=== PATIENT | female | born 1995 | race Caucasian/White ===

== ENCOUNTER → 2018-05-02 | Outpatient (CLI) | payer OTHER ==
[~2018-05-02] MED LIST: HYDACE5325 PO; IBUP800 PO; MEDR10 PO; NITR100CA PO; OXYACE5T PO; Vitafol-Ob+Dha1 EACH PO
== END | disposition home or self-care (01) ==
LOC: LAB SHORT 16:04 → LAB 16:04
PROVIDERS: Obstetrics & Gynecology
DX: Z12.4 Encounter for screening for malignant neoplasm of cervix (principal)
CPT/HCPCS: G0123

== ENCOUNTER 2018-08-13 09:15 | Day surgery (SDC) | payer OTHER ==
[~2018-08-13] VITALS: Ht 157.5 cm; Wt 77.1 kg
--- NOTE | 2018-08-13 10:05 | NUR ---
Ambulatory in Day Surgery Surgical site prepped with 2% Chlorhexidine cloth wipe. History, Chart, Medications and Allergies reviewed before start of procedure.Lungs clear T/O to Auscultation. Patient confirms NPO status and agrees with scheduled surgery. Patient reports completing Chlorhexadine shower X2 prior to admission to hospital. WARM BLANKET PROVIDED. BELONGIGNS UNDER BED. REFUSAL TO REMOVE JEWELRY OUT OF EARS SIGNED.
--- NOTE | 2018-08-13 10:54 | NUR ---
PT BECAME NAUSEATED FROM MIGRAINE. CALL OUT TO DR ABREU. PT RECEIVED ZOFRAN FOR NAUSEA WITH GOOD RESULTS. UNABLE TO GET AN ORDER FOR PAIN MEDS PRIOR TO ANESTHESIA CONSULT. PT GIVEN SOME VERSED BY AESTHESIA WITH GOOD RESULTS. VOMITED 50CC YELLOW CLEAR DRAINAGE. BOYFRIEND AT SIDE.
--- NOTE | 2018-08-13 15:45 | NUR ---
PT'S SHIFT ASSESSMENT WAS COMPLETED AT 1400
--- NOTE | 2018-08-13 18:17 | NUR ---
SHIFT SUMMARY PT ARRIVED ON FLOOR VERY DROWSEY, UPON WAKING UP PT BECAME NAUSEATED AND WAS ACTIVILY VOMITING. NEW IV MEDICATION ORDERED FOR PAIN AND NAUSEA, PT NOT ABLE TO TOLERATE PO FLUIDS OR FOODS AT THIS TIME, NO ORAL PAIN MEDICATION GIVEN AT THIS TIME DUE TO EMPTY STOMACH/NAUSEA. NO ABD BLOATING, INCISIONS ON ABD WITH MINIMAL DRAINAGE.
--- NOTE | 2018-08-13 19:00 | NUR ---
RECEIVED HAND OFF FROM DAY NURSE USING SBAR. LYING IN RIGHT RECOMBANT WITH EYES OPEN. AAO X3, CALIX, FOLLOWS ALL COMMANDS. REORIENTED TO ROOM, CALL SYSTEM, AND POC, VOICES UNDERSTANDING. RESPIRATIONS EVEN AND UNLABORED ON ROOM AIR. LUNG SOUNDS CLEAR BILATERALLY. ABDOMEN SOFT AND NONDISTENDED. BOWEL SOUNDS PRESENT IN ALL QUADS. LAP SITES X3 COVERED WITH STERI STRIPS. HEATON CATH DRAINING CLEAR YELLOW URINE TO GRAVITY. RIGHT FA PIV IS PATENT, FLUSHING WITH EASE WHILE INFUSING IVF PER MD ORDERS. DENIES FURTHER NEEDS OR WANT AT THIS TIME. SAFETY MEASURES IN PLACE. WILL CONTINUE TO MONITOR.
[2018-08-14 05:53] LABS: BASOPHILS ABSOLUTE AUTO 0.01 K/mm3 (0.00-0.23); BASOPHILS PERCENT AUTO 0 % (0-2); EOSINOPHILS ABSOLUTE AUTO 0.01 K/mm3 (0.00-0.68); EOSINOPHILS PERCENT AUTO 0 % (0-6); Hematocrit 34.9 % (33.0-51.0); Hemoglobin 11.3 g/dL (11.5-16.0); IMMATURE GRAN ABSOLUTE AUTO 0.01 K/mm3 (0.00-0.10); IMMATURE GRAN PERCENT AUTO 0 % (0-1); LYMPHOCYTES ABSOLUTE AUTO 1.21 K/mm3 (0.84-5.20); LYMPHOCYTES PERCENT AUTO 18 % (21-46); MONOCYTES ABSOLUTE AUTO 0.48 K/mm3 (0.16-1.47); MONOCYTES PERCENT AUTO 7 % (4-13); Mean Corpuscular HGB 28.5 pg (26.0-34.0); Mean Corpuscular HGB Conc 32.4 g/dL (31.5-36.5); Mean Corpuscular Volume 88 fL (80-100); Mean Platelet Volume 10.7 fL (9.1-12.4); NEUTROPHILS ABSOLUTE AUTO 4.89 K/mm3 (1.96-9.15); NEUTROPHILS PERCENT AUTO 74 % (41-73); Platelet Count 206 K/mm3 (150-400); RDW Standard Deviation 38.8 fL (35.1-46.3); Red Blood Cell Count 3.97 M/mm3 (3.80-5.20); White Blood Cell Count 6.61 K/mm3 (4.00-11.30)
[2018-08-14] MEDS ORDERED: Percocet 5-3251 EACH PO (09:39)
[2018-08-14] MEDS ORDERED: IBUP800 PO (09:40)
--- NOTE | 2018-08-14 12:13 | NUR ---
discharged PT DISCHARGED. DC'D IV, CATHETER INTACT. REVIEWED DC INSTRUCTIONS, PT VERBALIZED UNDERSTANDING. LEFT UNIT BY AMBULATION W/POSSESSIONS IN HAND, ACCOMPANIED BY S.O.
== END 2018-08-14 12:04 | disposition home or self-care (01) ==
LOC: ORSCMMR 09:15 → PRE IP 10:30 → EDSTATUS 10:30 → SURS 13:58 → ORSCMMR 08-14 12:04 → SURS 08-14 12:04
PROVIDERS: Obstetrics & Gynecology
PROC: 0UT9FZZ Resection of Uterus, Via Natural or Artificial Opening With Percutaneous Endoscopic Assistance (ICD-10-PCS; principal; 2018-08-13 10:30)
PROC: 0UT7FZZ Resection of Bilateral Fallopian Tubes, Via Natural or Artificial Opening With Percutaneous Endoscopic Assistance (ICD-10-PCS; principal; 2018-08-13 10:30)
DX: N94.89 Other specified conditions associated with female genital organs and menstrual cycle (principal); Z23 Encounter for immunization
CPT/HCPCS: 36415; 85025; 88307; 90686; C1729; J0690; J1200; J1885; J2250; J2405; J2765; J3010; J7030; J7120

== ENCOUNTER → 2020-01-19 | Outpatient (CLI) | payer OTHER ==
[~2020-01-19] MED LIST changes: +Percocet 5-3251 EACH PO
== END | disposition home or self-care (01) ==
LOC: LAB SHORT 13:45 → LAB 13:45
DX: R05 Cough (principal)
CPT/HCPCS: 87081

== ENCOUNTER → 2020-07-27 | Outpatient (CLI) | payer OTHER | END | disposition home or self-care (01) | LOC: LAB SHORT 10:56 → LAB 10:56 | DX: N89.8 Other specified noninflammatory disorders of vagina (principal) | CPT/HCPCS: 87070; 87205 ==

== ENCOUNTER 2024-08-05 10:06 | Observation (INO) | payer OTHER ==
[~2024-08-05] VITALS: Ht 160 cm; Wt 99.8 kg
[2024-08-05 11:15] LABS: BASOPHILS ABSOLUTE AUTO 0.01 K/mm3 (0.00-0.23); BASOPHILS PERCENT AUTO 0 % (0-2); EOSINOPHILS ABSOLUTE AUTO 0.08 K/mm3 (0.00-0.68); EOSINOPHILS PERCENT AUTO 1 % (0-6); Hematocrit 42.2 % (33.0-51.0); Hemoglobin 14.1 g/dL (11.5-16.0); IMMATURE GRAN ABSOLUTE AUTO 0.02 K/mm3 (0.00-0.10); IMMATURE GRAN PERCENT AUTO 0 % (0-1); LYMPHOCYTES ABSOLUTE AUTO 1.58 K/mm3 (0.84-5.20); LYMPHOCYTES PERCENT AUTO 27 % (21-46); MONOCYTES ABSOLUTE AUTO 0.31 K/mm3 (0.16-1.47); MONOCYTES PERCENT AUTO 5 % (4-13); Mean Corpuscular HGB 28.8 pg (26.0-34.0); Mean Corpuscular HGB Conc 33.4 g/dL (31.5-36.5); Mean Corpuscular Volume 86 fL (80-100); Mean Platelet Volume 10.8 fL (9.1-12.4); NEUTROPHILS ABSOLUTE AUTO 3.88 K/mm3 (1.96-9.15); NEUTROPHILS PERCENT AUTO 66 % (41-73); Platelet Count 278 K/mm3 (150-400); RDW Coefficient Variation 11.9 % (11.7-14.2); RDW Standard Deviation 37.7 fL (35.1-46.3); Red Blood Cell Count 4.89 M/mm3 (3.80-5.20); White Blood Cell Count 5.88 K/mm3 (4.00-11.30)
[2024-08-05 11:39] LABS: Salicylate <1.7 mg/dL (2.8-20.0)
[2024-08-05 11:40] LABS: Ethanol (Alcohol), Blood, Med <3 mg/dL
[2024-08-05 11:45] LABS: Alanine Aminotransfer (ALT/SGP 27 U/L (12-78); Albumin, Blood 3.9 g/dL (3.4-5.0); Albumin/Globulin Ratio 1.2 (0.8-1.8); Alk Phos 77 U/L (50-136); Anion Gap 8 mmol/L (3-11); Aspartate Aminotrans (AST/SGOT 14 U/L (12-37); Bilirubin, Total 0.5 mg/dL (0.1-1.0); Blood Urea Nitrogen 9 mg/dL (8-24); Bun/Creatinine Ratio 13.8 (12.0-20.0); CO2, Blood 26 mmol/L (21-32); Calcium, Blood 8.9 mg/dL (8.5-10.1); Chloride, Blood 109 mmol/L (98-108); Creatinine, Blood 0.65 mg/dL (0.40-1.00); Globulin, Blood 3.2 g/dL (2.2-4.0); Glomerular Filtration Rate 121 (60-); Glucose, Blood 100 mg/dL (70-99); Sodium, Blood 139 mmol/L (136-145); Total Protein, Blood 7.1 g/dL (6.4-8.2)
[2024-08-05 11:46] LABS: Acetaminophen, Random <2.0 ug/mL (10.0-30.0)
[2024-08-05] MEDS ORDERED: TraZODone HCl 50 MG Tab PO ONE (14:30)
[2024-08-05 15:35] LABS: Influenza A, PCR NEGATIVE (NEGATIVE); Influenza B, PCR NEGATIVE (NEGATIVE); Resp Syncytial Virus, PCR NEGATIVE (NEGATIVE); SARS-Cov-2 (COVID-19) PCR, MMC NEGATIVE (NEGATIVE)
[2024-08-05] MEDS ORDERED: TraZODone HCl 50 MG Tab PO SCH (21:00)
[2024-08-06 10:45] VITALS: BP 136/95
[2024-08-06] MEDS ORDERED: Ibuprofen 600 MG Tab PO ONE (10:45)
== END 2024-08-06 11:04 | disposition home or self-care (01) ==
LOC: ER 10:06 → EOR 10:07
PROVIDERS: Physician Assistant; ADMIT Student in an Organized Health Care Education/Training Program
DX: F33.9 Major depressive disorder, recurrent, unspecified (principal); E66.3 Overweight; Z68.30 Body mass index [BMI] 30.0-30.9, adult; Z79.899 Other long term (current) drug therapy; Z98.51 Tubal ligation status; Z90.710 Acquired absence of both cervix and uterus
CPT/HCPCS: 0241U; 36415; 80053; 80320; 85025; 99285-25; A9270; G0378; G0480

== ENCOUNTER → 2024-08-20 | Outpatient (CLI) | payer OTHER | END | disposition home or self-care (01) | LOC: LAB 19:21 → LAB SHORT 19:21 | DX: N39.0 Urinary tract infection, site not specified (principal) | CPT/HCPCS: 87077; 87086; 87186 ==